=== PATIENT | female | born 1935 | race Caucasian/White ===

== ENCOUNTER 2019-05-10 12:49 | Inpatient (IN) ==
--- NOTE | 2019-05-10 13:27 | Diag Imaging Result Doc PS360 ---
EXAM: CHEST-1 VIEW HISTORY: SOB TECHNIQUE: Chest COMPARISON: 01/05/2011 FINDINGS: The lungs are well expanded. The heart is borderline mildly prominent. The vessels are not distended. There are no infiltrates. No effusion identified. IMPRESSION: Borderline mildly prominent heart. Electronically signed by Nayan Gomez 05/10/2019 1:25 PM
--- NOTE | 2019-05-10 13:37 | EKG Report ---
Test Performed on : 05/10/2019 1:18:08 PM Test Reason : SOB Blood Pressure : / mmHG Vent. Rate : 105 BPM Atrial Rate : 079 BPM P-R Int : 000 ms QRS Dur : 078 ms QT Int : 294 ms P-R-T Axes : 000 077 042 degrees QTc Int : 388 ms Atrial fibrillation. with rapid ventricular response. Low voltage QRS Cannot rule out Anterior infarct , age undetermined Abnormal ECG No previous ECGs available Unconfirmed Result
[2019-05-10 14:17] LABS: BASO# 0.03 X1000 (0.0-0.2); BASO% 0.2 % (0.0-0.8); EOS# 1.51 X1000 (0.0-0.7); EOS% 10.4 % (0.0-10.0); HEMATOCRIT 40.5 % (37.0-47.0); HEMOGLOBIN 12.8 g/dL (12.0-16.0); LYMPH# 1.09 X1000 (1.2-3.4); LYMPH% 7.5 % (20.5-51.1); MCH 31.4 PG (27-31); MCHC 31.6 g/dL (33-37); MCV 99.5 FL (81-99); MONO# 1.16 X1000 (0.11-0.59); MPV 8.3 FL (7.4-10.4); NEUT# 10.75 X1000 (1.4-6.5); NEUT% 73.9 % (42.2-75.2); PLT 351 X1000 (130-400); RBC 4.07 XMIL (4.2-5.4); RDW 14.3 % (11.5-14.5); WBC 14.54 X1000 (4.8-10.8)
[2019-05-10 14:27] LABS: AGAP 12; ALB/GLOB RATIO 0.9; ALBUMIN 3.2 g/dL (3.5-5.0); ALKALINE PHOSPHATASE 100 U/L (32-104); BUN 14 mg/dL (8-22); CALCIUM 8.4 mg/dL (8.8-10.2); CHLORIDE 92 mmol/L (98-107); CK PROFILE 56 U/L (24-173); COSMO 271; CREATININE 0.7 mg/dL (0.5-0.9); ESTIMATED GFR > 60; GLUCOSE 133 mg/dL (70-104); GOT 20 U/L (10-30); GPT 12 U/L (10-36); POTASSIUM 4.4 mmol/L (3.5-5.1); SODIUM 134 mmol/L (136-145); TCO2 30 mmol/L (25-35); TOTAL BILIRUBIN 0.67 mg/dL (0.20-1.00); TOTAL PROTEIN 6.8 g/dL (6.3-8.3)
[2019-05-10 14:51] LABS: URINE SOURCE CATH
[2019-05-10 14:53] LABS: BILIRUBIN URINE NEGATIVE (NEGATIVE); BLOOD URINE NEGATIVE (NEGATIVE); COLOR YELLOW; GLUCOSE URINE NEGATIVE (NEGATIVE); KETONE URINE NEGATIVE (NEGATIVE); LEUKOCYTES URINE LARGE (NEGATIVE); NITRITE URINE POSITIVE (NEGATIVE); PROTEIN URINE TRACE mg/dL (NEGATIVE); SP GRAVITY URINE 1.015; TURBIDITY URINE TURBID (CLEAR); UROBILINOGEN URINE 2 mg/dL (NORMAL)
[2019-05-10 14:57] LABS: UR EPITHELIAL CELLS <10 /HPF (<10); URINE BACTERIA 4+ /HPF; URINE WBC TNTC /HPF (<10)
[2019-05-10 15:04] LABS: URINE CASTS NONE SEEN
[2019-05-10] MEDS ORDERED: ROCEPHIN 2 GM in NS 50 ML IV ONE (15:04)
[2019-05-10 15:06] LABS: INR 1.78; PROTIME 21.1 Seconds (11.0-16.0)
[2019-05-10 15:07] LABS: PTT 39.3 Seconds (22.3-41.8)
--- NOTE | 2019-05-10 16:13 | Diag Imaging Result Doc PS360 ---
EXAM: CT ANGIOGRM PULMONARY ARTERIES HISTORY: SOB TECHNIQUE: CT chest with intravenous contrast. Pulmonary arterial protocol with MIP images. COMPARISON: None. FINDINGS: Motion degrades image quality. Normal opacification of the pulmonary arteries and their proximal branches. Heart is mildly prominent. No pleural effusions. No thoracic aortic aneurysm or dissection. No enlarged mediastinal nodes. Mild vascular distention. No consolidation. Limited images through the upper abdomen reveal a prominent liver with fatty infiltration. 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 This exam was performed using automated exposure control, adjustment of mA or kV according to patient size, and/or use of iterative reconstruction technique. Electronically signed by Nayan Gomez 05/10/2019 4:11 PM
[2019-05-10] MEDS ORDERED: LASIX IV ONE (16:17)
--- NOTE | 2019-05-10 16:44 | PROVIDER DOCUMENTATION ---
This chart was entered by Alyssa Burdick Scribe, acting as scribe for Dariusz Slade MD. HPI-Respiratory General - General Chief Complaint: Shortness of Breath Stated Complaint: SOB Time Seen by Provider: 05/10/19 13:13 Source: patient, EMS (first response) - History of Present Illness-Resp Nature of Presenting Problem: 83 yowf presents to the ed from assisted living facility via ems for sob. per ems when [facility] pt had O2 sat 88% on RA, pt was placed on NC @ 4LPM and O2 came up to 95%. pt on exam is speaking well and in no distress. pt has chronic BLE edema with redness. pt smells strongly of urine on exam Quality of Pain: reports: none Severity in ED: reports: mild Onset/Duration: reports: just prior to arrival Timing: reports: improving Exposure: reports: unknown cause Cough Quality/Degree: reports: no cough Episode Frequency: occasional episodes Current Respiratory Medication Therapy: Initiated see nurses note Modifying Factors: improves with: oxygen, rest. worse with: exertion Associated Symptoms: reports: shortness of breath. denies: chest pain/soreness, cough, fever/chills, hurts to breathe, nasal congestion, wheezing Similar Symptoms Previously?: No Recently seen or treated by another doctor?: No Review of Systems - Adult - REVIEW OF SYSTEMS - ADULT Constitutional: denies: chills, fever Eyes: reports: no symptoms reported Ears, Nose, Mouth & Throat: reports: no symptoms reported Cardiovascular: denies: chest pain, palpitations, syncope Respiratory: reports: see HPI, shortness of breath. denies: cough, wheezing Gastrointestinal: denies: abdominal pain, diarrhea, nausea, vomiting Genitourinary: reports: no symptoms reported Musculoskeletal: denies: back pain, neck pain Integumentary: reports: no symptoms reported Neurological: denies: dizziness/vertigo, headache/migraines Psychiatric: reports: no symptoms reported Endocrine: reports: no symptoms reported Hematologic/Lymphatic: reports: no symptoms reported Allergic/Immunologic: reports: no symptoms reported All Other Systems: Reviewed and Negative Past History - Adult - PAST MEDICAL HISTORY-ADULT Review of Records: reports: Old Records Reviewed, Nursing Assessment Review, Medications Reviewed, Social history reviewed & non-contributory. Major Childhood Illnesses: reports: denies history Cardiovascular: reports: A-Fib, HTN Respiratory: reports: denies history Gastrointestinal: reports: denies history Obstetrical/Gynecological: reports: denies history Genitourinary: reports: denies history Musculoskeletal: reports: denies history Hand Dominance: Right Handed Neurological: reports: denies history Psychiatric: reports: depression Endocrine/Immune: reports: denies history Other Conditions: reports: denies history - PRIOR SURGERIES/PROCEDURES Surgical/Procedure History: reports: hysterectomy - IMMUNIZATION STATUS Childhood Immunizations: See Nurse Assessment Flu Vaccine: See Nurse Assessment - FAMILY HISTORY Family History: reviewed, not pertinent - SOCIAL HISTORY Smoking: quit greater than 1 year Substance Use: alcohol Alcohol Use Frequency: 2-3 times a month Number of drinks per typical drinking period:: 2 drinks Living Situation: care facility Physical Exam-General - PHYSICAL EXAM-ADULT Initial Vital Signs Reviewed: Yes - CONSTITUTIONAL General Appearance: appears well, alert, no apparent distress (pt denies pain and [facility] assisted living sent her to ed but she felt good), obese - EYES Eyes: PERRL/EOMI, pink conjunctivae - HEAD, EARS, NOSE, MOUTH & THROAT HENMT: moist mucous membranes, normal ENT inspection - NECK Neck: non-tender, full range of motion, supple, normal inspection - RESPIRATORY Respiratory: chest non-tender, decreased breath sounds (bilateral bases). negative: crackles, rales, rhonchi, wheezing - CARDIOVASCULAR Cardiovascular: normal peripheral pulses, tachycardia (101) - GASTROINTESTINAL (ABDOMEN) Abdominal Exam: normal bowel sounds, non tender, soft - GENITOURINARY Female Genitalia/Pelvic Exam: deferred Rectal Exam: deferred Hemoccult Exam: deferred - LYMPHATIC Lymphatic: no adenopathy - MUSCULOSKELETAL Back Exam: normal inspection, no CVA tenderness, no vertebral tenderness Extremity: normal range of motion, normal capillary refill, pelvis stable, erythema (BLE), inflammation (BLE), swelling (BLE) - SKIN Integumentary: normal color, normal turgor, warm/dry, erythema (BLE), swelling (BLE), warm (BLE) - 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, grossly normal, no motor/sensory deficits - PSYCHIATRIC Psych/Mental Status: normal mood/affect, normal thought content, normal thought process, oriented x 3 Progress - PLAN OF CARE/RESULTS Progress/Plan/Lab Results: Vital Signs - 8 hr 05/10/19 13:19 Temperature 99 F Pulse Rate 101 H Respiratory Rate 20 Blood Pressure 144/84 O2 Sat by Pulse Oximetry 93 L Laboratory Results - last 24 hr 05/10/19 05/10/19 05/10/19 13:44 13:44 13:44 WBC 14.54 H RBC 4.07 L Hgb 12.8 Hct 40.5 MCV 99.5 H MCH 31.4 H MCHC 31.6 L RDW Std Deviation 14.3 Plt Count 351 MPV 8.3 Neut % (Auto) 73.9 Lymph % (Auto) 7.5 L [place] % (Auto) 8.0 Eos % (Auto) 10.4 H Baso % (Auto) 0.2 Neut # (Auto) 10.75 H Lymph # (Auto) 1.09 L [place] # (Auto) 1.16 H Eos # (Auto) 1.51 H Baso # (Auto) 0.03 PT INR PTT (Actin FS) D-Dimer, Quantitative Sodium 134 L Potassium 4.4 Chloride 92 L Carbon Dioxide 30 Anion Gap 12 BUN 14 Creatinine 0.7 Estimated GFR/1.73 m2 > 60 BUN/Creatinine Ratio 20 Glucose 133 H Calculated Osmolality 271 Calcium 8.4 L Total Bilirubin 0.67 AST 20 ALT 12 Alkaline Phosphatase 100 Creatine Kinase 56 Troponin T Tmv-E-Pyflwyrefok Pept 1934 H Total Protein 6.8 Albumin 3.2 L Globulin 3.6 Albumin/Globulin Ratio 0.9 Urine Source Urine Color Urine Turbidity Urine pH Ur Specific [place] Urine Protein Ur Glucose (Stick) Ur Ketones (Stick) Urine Blood Urine Nitrite Urine Bilirubin Urobilinogen Dipstick Urine Leukocytes Urine WBC (Auto) Urine RBC (Auto) U Epithel Cells (Auto) Urine Bacteria (Auto) Urine Crystals Small Round Cells Urine Casts Urine Yeast-like Cells 05/10/19 05/10/19 05/10/19 13:44 14:26 14:26 WBC RBC Hgb Hct MCV MCH MCHC RDW Std Deviation Plt Count MPV Neut % (Auto) Lymph % (Auto) [place] % (Auto) Eos % (Auto) Baso % (Auto) Neut # (Auto) Lymph # (Auto) [place] # (Auto) Eos # (Auto) Baso # (Auto) PT 21.1 H INR 1.78 PTT (Actin FS) 39.3 D-Dimer, Quantitative 2.53 H Sodium Potassium Chloride Carbon Dioxide Anion Gap BUN Creatinine Estimated GFR/1.73 m2 BUN/Creatinine Ratio Glucose Calculated Osmolality Calcium Total Bilirubin AST ALT Alkaline Phosphatase Creatine Kinase Troponin T < 0.010 [id number]-Syooehlfzoq Pept Total Protein Albumin Globulin Albumin/Globulin Ratio Urine Source Urine Color Urine Turbidity Urine pH Ur Specific [place] Urine Protein Ur Glucose (Stick) Ur Ketones (Stick) Urine Blood Urine Nitrite Urine Bilirubin Urobilinogen Dipstick Urine Leukocytes Urine WBC (Auto) Urine RBC (Auto) U Epithel Cells (Auto) Urine Bacteria (Auto) Urine Crystals Small Round Cells Urine Casts Urine Yeast-like Cells 05/10/19 14:46 WBC RBC Hgb Hct MCV MCH MCHC RDW Std Deviation Plt Count MPV Neut % (Auto) Lymph % (Auto) [place] % (Auto) Eos % (Auto) Baso % (Auto) Neut # (Auto) Lymph # (Auto) [place] # (Auto) Eos # (Auto) Baso # (Auto) PT INR PTT (Actin FS) D-Dimer, Quantitative Sodium Potassium Chloride Carbon Dioxide Anion Gap BUN Creatinine Estimated GFR/1.73 m2 BUN/Creatinine Ratio Glucose Calculated Osmolality Calcium Total Bilirubin AST ALT Alkaline Phosphatase Creatine Kinase Troponin T Sdt-G-Qggavcalblg Pept Total Protein Albumin Globulin Albumin/Globulin Ratio Urine Source CATH Urine Color YELLOW Urine Turbidity TURBID Urine pH 6.0 Ur Specific [place] 1.015 Urine Protein TRACE A Ur Glucose (Stick) NEGATIVE Ur Ketones (Stick) NEGATIVE Urine Blood NEGATIVE Urine Nitrite POSITIVE A Urine Bilirubin NEGATIVE Urobilinogen Dipstick 2 A Urine Leukocytes LARGE A Urine WBC (Auto) TNTC A Urine RBC (Auto) 10-20 A U Epithel Cells (Auto) <10 Urine Bacteria (Auto) 4+ Urine Crystals Not Reportable Small Round Cells Not Reportable Urine Casts NONE SEEN Urine Yeast-like Cells Not Reportable Orders Category Date Time Status Cardiac Monitoring DIRECTED Care 05/10/19 12:54 Active Oxygen Therapy- ED Nursing DIRECTED Care 05/10/19 12:54 Active Saline Loc NOW Care 05/10/19 12:54 Active Straight Catheterization ORDERED Care 05/10/19 13:17 Active CHEST-1 VIEW [RAD] Stat Exams 05/10/19 12:55 Completed CTA [CT ANGIOGRM PULMONARY ARTERIES] [CT] Stat Exams 05/10/19 15:05 Completed BLOOD CULTURE [BLDCUL] Stat Lab 05/10/19 14:25 Results CBC WITH ELECTRONIC DIFF [HEME] Stat Lab 05/10/19 13:44 Completed CK PROFILE [SP CHEM] Stat Lab 05/10/19 13:44 Completed COMPREHENSIVE METABOLIC PANEL [CHEM] Stat Lab 05/10/19 13:44 Completed D-DIMER [COAG] Stat Lab 05/10/19 14:26 Completed LACTATE, PLASMA [CHEM] Stat Lab 05/10/19 15:43 Ordered PRO B-NATRIURETIC PEPTIDE Stat Lab 05/10/19 13:44 Completed PROTIME WITH INR [COAG] Stat Lab 05/10/19 14:26 Completed PTT [COAG] Stat Lab 05/10/19 14:26 Completed TROPONIN T Stat Lab 05/10/19 13:44 Completed UA NIMS W/REFLEX CULT [URINALYSIS] Stat Lab 05/10/19 14:46 Completed URINE CULTURE [RM] Routine Lab 05/10/19 15:21 Received URINE MANUAL MICROSCOPIC [URINALYSIS] Stat Lab 05/10/19 14:46 Completed CefTRIAXONE [Rocephin] 2 gm Med 05/10/19 15:04 Discontinued 0.9% Sodium Chloride Inj [Ns] 50 ml IV NOW Furosemide [Lasix] Med 05/10/19 16:17 Discontinued 40 mg IV NOW ONE CP/SOB/Palp >45 yrs of Age Stat Oth 05/10/19 12:54 Ordered EKG [EKG] Stat Ther 05/10/19 12:54 Draft Result Diagrams: 05/10/19 13:44 05/10/19 13:44 - REASSESSMENT Reassessment #1 Time Reassessed: 16:25 (pt is in no distress) Status: other (DR RICHMOND COMING TO ER TO ADMIT PATIENT) - EKG 1 Time of EKG reading by physician:: 13:18 EKG Read and Signed by:: Dariusz Slade EKG Interpretation (*Must complete 3 of following elements*): Abnormal Rate: 105 Rhythm: afib with rvr [place]: normal QRS: other (low voltage qrs) [place] Interval: normal ST Wave: normal Comments: cannot rule out anterior infarct, age undetermiend - XRAY 1 XRAY: Bilateral XRAY Study: Chest Impression: See EMR Report (EXAM: CHEST-1 VIEW HISTORY: SOB TECHNIQUE: Chest COMPARISON: 01/05/2011 FINDINGS: The lungs are well expanded. The heart is borderline mildly prominent. The vessels are not distended. There are no infiltrates. No effusion identified. IMPRESSION: Borderline mildly prom inent heart. Electronically signed by Nayan Gomez 05/10/2019 1:25 PM 05/10/19 1325 Interpreting Physician: Nayan Gomez MD Dictated Date/Time: 05/10/19 1324 cc: Dariusz Slade MD;) - CT/MRI 1 CT Study: Angiogram Impression: See EMR Report (XAM: CT ANGIOGRM PULMONARY ARTERIES HISTORY: SOB TECHNIQUE: CT chest with intravenous contrast. Pulmonary arterial protocol with MIP images. COMPARISON: None. FINDINGS: Motion degrades image quality. Normal opacification of the pulmonary arteries and their proximal branches. Heart is mildly prominent. No pleural effusions. No thoracic aortic aneurysm or dissection. No enlarged mediastinal nodes. Mild vascular distention. No consolidation. Limited images through the upper abdomen reveal a prominent liver with fatty infiltration. 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 IMPRESSION: 1.No pulmonary emboli 2.Mild cardiomegaly and mild pulmonary edema 3.Hepatomegaly with fatty infiltration 4.Mid abdominal ane urysm likely arising from the splenic artery. This exam was performed using automated exposure control, adjustment of mA or kV according to patient size, and/or use of iterative reconstruction technique. Electronically signed by Nayan Gomez 05/10/2019 4:11 PM 05/10/19 1611 Interpreting Physician: Nayan Gomez MD Dictated Date/Time: 05/10/19 1607 cc: Dariusz Slade MD; Car Richmond MD) - CONSULTS/PCP/HOSPITALIST Notification #1 *Consult/PCP/Hospitalist*: dr richmond pcp Time Discussed: 16:37 Consult Disposition: Admit Departure - Departure Date of Disposition Decision: 05/10/19 Time of Disposition Decision: 16:24 DIAGNOSIS: Hypoxia UTI (urinary tract infection) Qualifiers: Urinary tract infection type: site unspecified Hematuria presence: without hematuria Qualified Code(s): N39.0 - Urinary tract infection, site not specified CHF (congestive heart failure) Qualifiers: Heart failure type: unspecified Heart failure chronicity: unspecified Qualified Code(s): I50.9 - Heart failure, unspecified Disposition: ADMITTED INPATIENT 09 Certified Medical Emergency: Emergent Condition: Fair Referrals and Follow-Ups: Car Richmond MD [Primary Care Provider] - - Critical Care Note This patient required my direct & personal management of CC.: No Attestation - Physician/ RACHAEL Attestation Patient care was provided by Advanced Practice Provider:: No The physician spent face to face time with patient:: Yes Advanced Practice Provider documentation review:: Supervising physician onsite and consulted in the evaluation and care of this patient. The physician did have a face to face encounter with the patient. This chart was documented by the indicated scribe, (Alyssa Burdick Scribe) and accurately reflects the services I performed and decisions made by me, Dariusz Slade MD, as attested by the provider's signature.
[2019-05-10] MEDS ORDERED: TYLENOL PO PRN (19:04)
[2019-05-10] MEDS ORDERED: ZOFRAN ODT PO PRN (19:04)
--- NOTE | 2019-05-10 19:27 | HISTORY AND PHYSICAL ---
CHIEF COMPLAINT: Low oxygen saturation at [facility]. PRESENT ILLNESS: Mrs. Rodriguez is an 83-year-old white female who is a long-term resident at [facility]. The ostensible reason she was brought here is her O2 saturation at the [facility] facility was approximately 65% on room air. Her friend, who accompanies her, says that for approximately a week she has just been sitting in a chair in her room and not getting into the bed to sleep and she has had an unchanged diaper on her for several days. She has a history of being somewhat difficult to care for and often refuses the staff's suggestions to get up and walk and move around the room and sleep in bed. She has fairly significant dementia and is likely not competent to make decisions and may end up in long-term care if she does not improve during this hospitalization and at rehab. Here in the emergency room, she was noted to have an elevated white blood count of 14,500 and a urinalysis suggesting an infection. Her oxygen saturation was low and her D dimer was positive, so she underwent CT angiography of the pulmonary arteries which suggested heart failure but did not find any pulmonary emboli. She has a history of chronic atrial fibrillation and takes Xarelto 15 mg daily for anticoagulation. Currently on 4 L nasal cannula oxygen her O2 saturation is 98%. PAST MEDICAL HISTORY: She has a long history of chronic atrial fibrillation, hypertension, and dementia. She has had a diffuse rash over her arms, trunk, and legs for several months and has been seen by two dermatologists and prescribed topical steroids and moisturizing agents. Her rash has waxed and waned, but continues. She has a long history of venous hypertension with edema of both lower extremities, worsened by her resistance to lying down and elevating her legs. HOME MEDICATIONS: Tekturna 300 mg daily for hypertension, digoxin 125 mcg daily for atrial fibrillation, donepezil 5 mg daily for dementia, furosemide 40 mg p.o. q a.m., Xarelto 15 mg daily, sertraline 50 mg daily, triamcinolone and Cetaphil lotion b.i.d. ALLERGIES: Codeine, causes nausea. SOCIAL HISTORY: She is a and has lived at [facility] for several years. She has one son who is a healthcare executive in [place]. She does not use tobacco but does have a double scotch every evening. FAMILY HISTORY: Noncontributory. REVIEW OF SYSTEMS: General: No headache, fever, chills, night sweats, or weight loss. HEENT: Vision and hearing are adequate without recent changes. Respiratory: No shortness of breath, cough or sputum production. She has not attempted to lie down in over a week. Cardiovascular: Chronic atrial fibrillation, controlled with digoxin. I do not believe she has had a recent echocardiogram and may have developed some congestive heart failure as evidenced by the CT angiogram today. She denies any palpitations or chest pain. Gastrointestinal: Long history of morbid obesity, somewhat worse since she quit walking at all several months ago. Appetite is good. No nausea or vomiting. : She is incontinent and wears briefs at the rest home. She denies dysuria but does complain of red rash in the left groin. Dermatologic: Diffuse excoriated papules present on her trunk, arms, and legs. It spares the palms and the hands but she does have significant stasis dermatitis on her feet and lower legs with moderate redness and tenderness. The right jennings has been oozing some serous fluid for several weeks. Neurologic: No history of strokes or seizures. Psychiatric: She has had very limited memory and increasing difficulty relating to staff and people for several years. She has been on low dose donepezil and while she is in the hospital seems a good time to attempt an increase. PHYSICAL EXAMINATION: VITAL SIGNS: Temperature 98, pulse rate 113, blood pressure 130/80, respiratory rate 21, O2 saturation 98% on 4 L oxygen. GENERAL APPEARANCE: Morbidly obese, elderly woman who recognizes me but seems generally confused. She is calm and cooperative presently. SKIN: Numerous excoriated papules of varying ages scattered over her trunk, arms, and legs. Both lower legs are edematous with moderate redness and tenderness. The right leg has numerous crusted areas where serous fluid has apparently seeped through the skin. There are also some blisters on the right foot and a healing abrasion at the base of the great toe on the right side. HEENT: Pupils are equal, round, and reactive. Extraocular movements are intact. Oropharynx is benign. NECK: Heavyset. Questionable jugular venous distention but no palpable adenopathy or thyromegaly. LUNGS: Clear anteriorly but a few crackles are heard in both bases posteriorly. CARDIAC: Distant irregular rhythm with apical rate of approximately 95 to 100. No murmurs are heard. ABDOMEN: Obese. Soft. Nontender with active bowel sounds. No palpable organomegaly. GENITAL AND RECTAL EXAM: Ardon catheter is present. There is moderate erythema and tenderness in the left inguinal fold and beneath her panniculus. NEUROLOGIC: No obvious cranial nerve deficits. She moves all extremities on command. DATABASE: Sodium 134, potassium 4.4, chloride 92, glucose 133, BUN 14, creatinine 0.7, calcium 8.4, albumin 3.2. Liver enzymes are unremarkable. White blood count 14,500. Hemoglobin 12.8 and hematocrit 40.5%. MCV is 99.5. Eosinophils are 10.4%. Urinalysis with too numerous to count white blood cells with positive nitrites and trace of protein, pH 6.0. ASSESSMENT: 1. Hypoxia on admission, probably due to congestive heart failure as documented by the CT angiogram of her pulmonary arteries. 2. Chronic atrial fibrillation with controlled ventricular response. 3. Venous hypertension of both lower extremities with moderate inflammation and serous fluid oozing from the right calf. 4. Excoriated rash for many months, presumably dry skin but has not responded to topical treatments. I suspect not bathing is another major contributing factor. I think she has been treated previously for scabies without results and her hands show no evidence of any rash and it seems unlikely to be scabies. 5. Senile dementia, Alzheimer's type, moderate. 6. Acute pyelonephritis with possible cellulitis of the lower extremities. TREATMENT PLAN: She has been given a dose of IV Lasix and IV Rocephin here in the emergency room. She will be continued on q 12 hour IV Lasix until significant improved and will follow electrolytes and renal function. She will be continued on her Xarelto. Her son Trip plans to be here tomorrow and will assist in planning her future care. Remaining at [facility] may not be a viable option, perhaps LTC. cc: MD ALEX Sherman
[2019-05-11] MEDS: LOTRISONE CREAM TOP SCH ×3 (07:05→18:40)
[2019-05-11] MEDS ORDERED: MISC. PHARMACY COMMUNICATION SCH (08:30)
[2019-05-11] MEDS ORDERED: ZOLOFT PO SCH (09:00)
[2019-05-11] MEDS ORDERED: LANOXIN PO SCH (09:00)
[2019-05-11] MEDS ORDERED: XARELTO PO SCH (09:00)
[2019-05-11] MEDS: LASIX IV SCH ×2 (09:27→20:08)
[2019-05-11] MEDS: ROCEPHIN 1 GM in NS 50 ML IV SCH (09:27)
[2019-05-11] MEDS: ZOLOFT PO SCH (09:29)
[2019-05-11] MEDS: ARICEPT PO SCH (09:29)
[2019-05-11] MEDS: XARELTO PO SCH (09:29)
[2019-05-11] MEDS: LANOXIN PO SCH (09:29)
[2019-05-11] MEDS: TEKTURNA PO SCH (09:29)
[2019-05-11] MEDS: NON-FORMULARY BULK MED TOP SCH ×2 (11:00→20:08)
--- NOTE | 2019-05-11 18:07 | ECHO REPORT ---
ORDER DATE: 05/10/2019 MEASUREMENTS: Left ventricular end-diastolic diameter 3.7. SUMMARY: 1. Very difficult study for interpretation due to very limited acoustic window quality. 2. Aortic valve is without gross structural abnormality and appears to open adequately on 2- dimensional images. Peak gradient across the aortic valve is 15 mmHg. Mitral and tricuspid valves are without gross structural abnormality while pulmonic valve is not well demonstrated. There is mild tricuspid regurgitation. The estimated systolic PA pressure by Doppler is 40 mmHg suggesting mild pulmonary hypertension. Aortic root is grossly normal in size. 3. Grossly normal left ventricular dimensions suggested. Estimated left ejection fraction appears to be at least 55%. No obvious wall motion abnormality can be appreciated. Left atrium is at least moderately enlarged. Right atrium and right ventricle are grossly normal size. 4. No pericardial effusion. 5. Appearance of inferior vena cava suggests mild elevation in central venous pressure. cc: MD Car Pace MD
[2019-05-11] MEDS ORDERED: ZYRTEC PO ONE (18:17)
[2019-05-11] MEDS: SEROQUEL PO SCH (20:54)
[2019-05-12] MEDS: LOTRISONE CREAM TOP SCH (05:30)
[2019-05-12 06:11] LABS: BASO# 0.02 X1000 (0.0-0.2); BASO% 0.2 % (0.0-0.8); EOS# 1.54 X1000 (0.0-0.7); EOS% 12.8 % (0.0-10.0); HEMATOCRIT 36.3 % (37.0-47.0); HEMOGLOBIN 11.6 g/dL (12.0-16.0); IMM GRAN# 0.04 X1000 (0.0-0.04); IMM GRAN% 0.3 % (0.0-0.5); LYMPH# 1.09 X1000 (1.2-3.4); LYMPH% 9.1 % (20.5-51.1); MCH 31.5 PG (27-31); MCV 98.6 FL (81-99); MONO# 1.01 X1000 (0.11-0.59); MONO% 8.4 % (1.7-9.3); MPV 8.2 FL (7.4-10.4); NEUT# 8.29 X1000 (1.4-6.5); NEUT% 69.2 % (42.2-75.2); PLT 368 X1000 (130-400); RBC 3.68 XMIL (4.2-5.4); RDW 14.2 % (11.5-14.5); WBC 11.99 X1000 (4.8-10.8)
[2019-05-12 06:45] LABS: CALCIUM 8.2 mg/dL (8.8-10.2); MAGNESIUM 2.1 mg/dL (1.5-2.7)
[2019-05-12] MEDS: LASIX IV SCH (08:09)
[2019-05-12] MEDS: ROCEPHIN 1 GM in NS 50 ML IV SCH (08:11)
[2019-05-12] MEDS: TEKTURNA PO SCH (08:14)
[2019-05-12] MEDS: ZOLOFT PO SCH (08:14)
[2019-05-12] MEDS: XARELTO PO SCH (08:14)
[2019-05-12] MEDS: ARICEPT PO SCH (08:14)
[2019-05-12] MEDS: LANOXIN PO SCH (08:14)
[2019-05-12] MEDS ORDERED: ZYRTEC PO SCH (09:00)
--- NOTE | 2019-05-12 09:02 | PROGRESS NOTE ---
DATE: 05/12/2019 SUBJECTIVE: Ms. Rodriguez presented over here because of low oxygen saturations at [place]. She is an 83-year-old patient of Dr. Car Richmond, long-term resident of [facility], was brought here for drop in O2 saturations, approximately 65% on room air. She says for approximately a week, she has been sitting in a chair in her room and not getting into the bed to sleep and has had unchanged diaper for several days. The son says she really refuses bathing and hygiene and physical therapy and everything. She has significant dementia and likely not competent to make decisions and may end up with long-term comfort care. [place] [id number], urinalysis suggested infection. CT angiogram of the pulmonary arteries suggested heart failure but did not find any pulmonary emboli. PAST MEDICAL HISTORY: History of chronic atrial fibrillation, hypertension, dementia. She has a diffuse rash over her trunk that is really macular papular with excoriations. It apparently itches on her arms and her trunk and her lower extremities with erythema and pulmonary venous hypertension, and some bullae on her right foot. LABORATORY DATA: [place] come [place] from [address] to [id number], hematocrit down to 36, platelet count 368,000. Chemistries: Creatinine is 1.0, sodium 133, potassium 4.0, chloride 89, calcium 8.2. ASSESSMENT AND PLAN: 1. Treating her for acute pyelonephritis with leukocytosis and urinary sediment. Her urine grew out Escherichia coli and it is sensitive to cefazolin and intermediate to Levaquin, it is resistant to ampicillin. Blood cultures negative after 48 hours, no growth. We will continue her IV ceftriaxone. 2. Congestive heart failure with pulmonary venous hypertension and hypoxemia. Try and diurese her some. 3. Venous hypertension with erythema and kind of nonspecific diffuse irritation, cellulitis, ulcers in the right calf. 4. Chronic atrial fibrillation. So continue the diuresis of Lasix q.12, her IV Rocephin. Try and increase her activity, get her out of bed. The rash appears to be a topical irritation. REVIEW OF ORDERS: She is on Tekturna 300 mg p.o. daily, Zyrtec 10 mg daily, Seroquel 50 mg at bedtime. She is getting topical clotrimazole and methasone cream which is Lotrisone, Lanoxin 125 mcg a day, Aricept 10 mg a day, Lasix 40 mg IV q.12, and Xarelto 15 mg daily, Zoloft 50 mg daily. cc: MD Car Cortes MD
[2019-05-12] MEDS ORDERED: PREDNISONE PO ONE (09:41)
[2019-05-12] MEDS: ATARAX PO PRN (10:40)
[2019-05-12] MEDS: SEPTRA DS PO SCH (20:11)
[2019-05-12] MEDS: SEROQUEL PO SCH (20:11)
[2019-05-12] MEDS: NON-FORMULARY BULK MED TOP SCH (20:18)
[2019-05-12] MEDS ORDERED: ELIMITE 5% CREAM TOP ONE (21:00)
[2019-05-13] MEDS: LOTRISONE CREAM TOP SCH ×3 (00:01→18:15)
[2019-05-13] MEDS: NON-FORMULARY BULK MED TOP SCH ×2 (09:55→22:41)
[2019-05-13] MEDS: ZOLOFT PO SCH (09:57)
[2019-05-13] MEDS: ARICEPT PO SCH (09:57)
[2019-05-13] MEDS: TEKTURNA PO SCH (09:57)
[2019-05-13] MEDS: SEPTRA DS PO SCH ×2 (09:57→22:41)
[2019-05-13] MEDS: XARELTO PO SCH (09:57)
[2019-05-13] MEDS: BUMEX PO SCH (09:58)
[2019-05-13] MEDS: LANOXIN PO SCH (09:58)
--- NOTE | 2019-05-13 13:23 | PROGRESS NOTE ---
DATE: 05/13/2019 SUBJECTIVE: She was sleeping. She had kind of a restless night so was sleeping off and on, appeared to be comfortable, breathing comfortably. OBJECTIVE: Vital signs: Temp 99.5 degrees, pulse 77, respirations 19, blood pressure 139/93. HEENT: Her pupils are equal. Neck: No distended neck veins. Lungs: Clear anterolateral. Cardiovascular: Regular rhythm and rate without murmur or S3. Abdomen: Soft. Skin: Warm and dry. ASSESSMENT AND PLAN: 1. Treating for acute pyelonephritis and leukocytosis, which appear to be improving. Urine grew out E. coli sensitive to cefazolin and resistant to ampicillin. Continue her ceftriaxone. 2. Congestive heart failure, pulmonary venous hypertension. She appears to have better air and gas exchange. 3. Venous hypertension with erythema of lower extremities. She had nonspecific irritation which is improved. The erythema is really markedly down on her legs. She has scattered diffuse small papillary rash with some excoriation, and that seems to be drying up and healing as well. 4. Chronic atrial fibrillation. Rate is controlled. 5. 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 Family is concerned that she has never been very cooperative. She is on Seroquel 50 mg at bedtime, Bactrim 1 twice a day, Tekturna 300 mg p.o. daily, Bumex 2 mg daily, Lanoxin 125 mcg a day, Aricept 10 mg a day, Xarelto 50 mg daily, Zoloft 50 mg a day, permethrin 5%. She got treatment that was yesterday and then got one dose of prednisone 20 mg. We will continue current orders. I do not know if she will cooperate with physical therapy, but she has it ordered. cc: MD Car Cortes MD
[2019-05-13] MEDS: ATARAX PO PRN ×2 (13:35→22:41)
[2019-05-13] MEDS ORDERED: VITAMIN D PO SCH (15:00)
[2019-05-13] MEDS: SEROQUEL PO SCH (22:41)
[2019-05-14 06:15] LABS: BASO# 0.03 X1000 (0.0-0.2); BASO% 0.3 % (0.0-0.8); EOS# 1.26 X1000 (0.0-0.7); EOS% 11.4 % (0.0-10.0); HEMATOCRIT 36.3 % (37.0-47.0); HEMOGLOBIN 11.3 g/dL (12.0-16.0); LYMPH# 0.86 X1000 (1.2-3.4); LYMPH% 7.8 % (20.5-51.1); MCH 31.7 PG (27-31); MCHC 31.1 g/dL (33-37); MCV 101.7 FL (81-99); MONO# 0.85 X1000 (0.11-0.59); MONO% 7.7 % (1.7-9.3); MPV 8.1 FL (7.4-10.4); NEUT# 8.02 X1000 (1.4-6.5); NEUT% 72.8 % (42.2-75.2); PLT 321 X1000 (130-400); RBC 3.57 XMIL (4.2-5.4); RDW 13.9 % (11.5-14.5); WBC 11.02 X1000 (4.8-10.8)
[2019-05-14 06:40] LABS: CALCIUM 8.5 mg/dL (8.8-10.2); CREATININE 1.1 mg/dL (0.5-0.9); POTASSIUM 4.4 mmol/L (3.5-5.1)
[2019-05-14 07:06] LABS: DIGOXIN 1.2 ng/mL (0.9-2.0)
[2019-05-14] MEDS: LOTRISONE CREAM TOP SCH ×2 (09:55→22:56)
[2019-05-14] MEDS: NON-FORMULARY BULK MED TOP SCH ×3 (09:55→22:55)
[2019-05-14] MEDS: BUMEX PO SCH (09:56)
[2019-05-14] MEDS: ZOLOFT PO SCH (09:56)
[2019-05-14] MEDS ORDERED: NON-FORMULARY MED PO ONE (10:00)
[2019-05-14] MEDS: SEPTRA DS PO SCH ×2 (10:01→22:55)
[2019-05-14] MEDS: LANOXIN PO SCH (10:01)
[2019-05-14] MEDS: ARICEPT PO SCH (10:02)
[2019-05-14] MEDS: TEKTURNA PO SCH (10:03)
[2019-05-14] MEDS: XARELTO PO SCH (10:03)
[2019-05-14] MEDS: ATARAX PO PRN (22:55)
[2019-05-14] MEDS: SEROQUEL PO SCH (22:55)
[2019-05-15] MEDS: SEPTRA DS PO SCH ×2 (09:33→20:26)
[2019-05-15] MEDS: ZOLOFT PO SCH (09:33)
[2019-05-15] MEDS: ARICEPT PO SCH (09:33)
[2019-05-15] MEDS: BUMEX PO SCH (09:33)
[2019-05-15] MEDS: XARELTO PO SCH (09:33)
[2019-05-15] MEDS: LOTRISONE CREAM TOP SCH ×2 (09:34→20:26)
[2019-05-15] MEDS: TEKTURNA PO SCH (09:34)
[2019-05-15] MEDS: NON-FORMULARY BULK MED TOP SCH ×2 (09:34→20:26)
[2019-05-15] MEDS: LANOXIN PO SCH (09:36)
[2019-05-15 10:07] LABS: BLOOD TYPE ARTERIAL; SAMPLE BLOOD
[2019-05-15 10:08] LABS: ALLEN TEST YES; BE 10.4 mmoll (-3.0-3.0); METHB 1.3 % (0.0-1.5); MODALITY CANNULA; O2(CT) 16.7 mL/dL (15.0-23.0); O2HB 94.2 % (95.0-99.0); PO2(98.6) 75 mmHg (60-100); THB 12.6 g/dL (11.5-17.4); pH(98.6) 7.37 (7.35-7.45)
[2019-05-15 10:12] LABS: PCO2(98.6) 66 mmHg (35-45)
[2019-05-15] MEDS: SEROQUEL PO SCH (20:26)
[2019-05-16 06:04] LABS: BASO# 0.02 X1000 (0.0-0.2); BASO% 0.2 % (0.0-0.8); EOS# 1.14 X1000 (0.0-0.7); EOS% 11.6 % (0.0-10.0); HEMATOCRIT 36.2 % (37.0-47.0); HEMOGLOBIN 11.3 g/dL (12.0-16.0); IMM GRAN# 0.02 X1000 (0.0-0.04); IMM GRAN% 0.2 % (0.0-0.5); LYMPH# 0.73 X1000 (1.2-3.4); LYMPH% 7.4 % (20.5-51.1); MCHC 31.2 g/dL (33-37); MCV 99.5 FL (81-99); MONO# 0.59 X1000 (0.11-0.59); MPV 8.1 FL (7.4-10.4); NEUT# 7.35 X1000 (1.4-6.5); NEUT% 74.6 % (42.2-75.2); PLT 336 X1000 (130-400); RBC 3.64 XMIL (4.2-5.4); RDW 13.8 % (11.5-14.5); WBC 9.85 X1000 (4.8-10.8)
[2019-05-16] MEDS ORDERED: SYNTHROID PO ONE (07:53)
[2019-05-16] MEDS: LOTRISONE CREAM TOP SCH (08:15)
[2019-05-16] MEDS: NON-FORMULARY BULK MED TOP SCH (08:15)
[2019-05-16] MEDS: XARELTO PO SCH (08:16)
[2019-05-16] MEDS: ZOLOFT PO SCH (08:16)
[2019-05-16] MEDS: LANOXIN PO SCH (08:17)
[2019-05-16] MEDS: ARICEPT PO SCH (08:17)
[2019-05-16] MEDS: SEPTRA DS PO SCH (08:17)
[2019-05-16] MEDS: TEKTURNA PO SCH (08:19)
[2019-05-16] MEDS ORDERED: BUMEX PO SCH (09:00)
--- NOTE | 2019-05-16 10:28 | DISCHARGE SUMMARY ---
ADMISSION DATE: 05/10/2019 DISCHARGE DATE: 05/16/2019 FINAL DIAGNOSES: 1. Morbid obesity/hypoventilation syndrome with hypoxia and hypercarbia. 2. Acute pyelonephritis, Escherichia coli cultured and treated. 3. Chronic atrial fibrillation on anticoagulation. 4. Chronic diastolic congestive heart failure. 5. Alzheimer's dementia with behavioral abnormalities. 6. Chronic bilateral venous hypertension with inflammation. 7. Rash, scabies suspected and treated. PRESENT ILLNESS: Ms. Rodriguez is an 83-year old white female long-term resident at [facility]. She was sent to the Emergency Room for evaluation because of shortness of breath and low oxygen saturation. Her caregiver stated that for at least a week she had remained sitting in a loveseat in her room and refusing to get up into bed to sleep and only walking once or twice a day to the bathroom with the moderate assistance of 2 people. In the Emergency Room she was noted to have an increased white blood count of 14,500 and a urinalysis suggesting an infection. Her oxygen saturation was confirmed to be low and her D-dimer was positive so she underwent CT angiography of the pulmonary arteries which suggested heart failure but did not find any pulmonary emboli. She has a history of chronic atrial fibrillation and has been on Xarelto 15 mg daily. PHYSICAL EXAMINATION: General: Physical examination revealed an alert, morbidly obese, white female who recognized me but seemed generally confused but was cooperative. Skin: Exam revealed numerous excoriated papules of varying ages scattered over her trunk, arms, and legs. Extremities: Both legs were edematous with redness and increased tenderness. The right leg has numerous shallow crusted areas where serous fluid has apparently seeped through the skin. Several blister were noted on the right foot. HEENT: Exam was unremarkable. Neck: Heavy set with questionable jugular venous distention. Lungs: Clear anteriorly but a few crackles are heard in both bases posteriorly. Cardiac: Distant irregular rhythm with apical rate of approximately 95 to 100. Please see dictated History and Physical for further details. HOSPITAL COURSE: Urinalysis suggested an infection and a culture was sent and subsequently grew E. Coli sensitive to most antibiotics. She was treated with several days of intravenous Rocephin and then transitioned to oral Septra and completed a 7 day course of therapy. She was given intravenous Lasix for congestive heart failure and her shortness of breath resolved but she remained hypoxic. An arterial blood gas was performed yesterday and documented a normal pH with pCO2 of 66 and pO2 of 65. She was felt to have chronic obesity hypoventilation syndrome with both hypoxia and hypercarbia. For her chronic atrial fibrillation her ventricular response was controlled for the most part and she was continued on her Xarelto. There was no evidence of any bleeding complications. Her venous hypertension was addressed with periodic bedrest and elevation of her legs as well as an Unna boot to the right leg. Her rash had been seen by 2 dermatologists previously and felt to be dry skin but had persisted despite appropriate therapy so scabies was considered as a differential diagnosis and she was treated once with permethrin topically and then subsequently with ivermectin orally and it seems to have improved significantly. I do not believe that she continues to be infectious. 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 She was seen by Physical Therapy and cooperated somewhat and insisted that she would cooperate with rehab. Several lengthy conversations were held with the patient and her son Riki about her future care. Four or five years ago she had been discharged to rehab and did not cooperate and had to return to [facility] but she now says that she will cooperate and our plan is for her to go to [facility] in [place] for subacute rehab and hopefully within 21 days she will return to [facility] in a more ambulatory condition. She will require long-term daily nasal O2 at 2 L/min but due to her hypercarbia I would prefer that she not have this increased and be allowed to tolerate an O2 saturation as low as 85%. She will need to see a beauty shop manager at the facility for toenail trimming and probably have the Unna boot changed weekly by the Wound Care Nurse. She was also seen by [facility] with the expectation that when she returns to [facility] that she may choose to be a comfort care hospice care patient. DISCHARGE MEDICATIONS: Bumetanide 1 mg daily every a.m., digoxin 125 mcg daily, Lotrisone cream topically to both feet every 12 hours for 14 days, triamcinolone cream and Cetaphil lotion topically to rash b.i.d. p.r.n. for itching, Tekturna 300 mg daily for hypertension, vitamin D2 50,000 units once a week orally for vitamin D deficiency, Aricept 10 mg every a.m., levothyroxine 50 mcg daily (TSH was 6.9 during this admission), acetaminophen 325 mg 1 to 2 tablets every 6 hours as needed for pain, Seroquel 50 mg nightly at bedtime for behavioral abnormalities, Xarelto 15 mg daily for atrial fibrillation, Sertraline 50 mg daily for adjustment disorder with depressed mood. time to prepare this summary: 46 minutes cc: Car Richmond MD MTDD
[2019-05-16 16:58] VITALS: BP 146/69
[2019-05-17] MEDS ORDERED: SYNTHROID PO SCH (07:00)
== END 2019-05-16 17:51 | DRG 206 ==
LOC: ED 12:49 → 4N 18:20
PROVIDERS: ADMIT Internal Medicine; ATTEND Internal Medicine